=== PATIENT | female | born 1990 | race Hispanic/Latino ===

== ENCOUNTER 2018-04-09 08:01 | Inpatient (IN) | payer OTHER, SELFPAY ==
--- OUTSIDE RECORDS SUMMARY | 2018-04-09 08:03 | XMS REPORT ---
:1990 Author Organization eClinicalWorks Care Team Providers Name Role Phone Guillaume Anne Provider Role Unavailable Allergies No Known Allergies Problems Problem Type Condition Code Onset Dates Condition Status Problem Threatened O20.0 Active Problem Less than 8 weeks gestation of Z3A.01 Active Assessment Less than 8 weeks gestation of Z3A.01 Active Medications No Known Medications Results No Known Results Summary Purpose eClinicalWorks Submission
--- OUTSIDE RECORDS SUMMARY | 2018-04-09 08:03 | XMS REPORT ---
:1990 Author Organization [employer] Care Team Providers Name Role Phone Guillaume Anne Provider Role Unavailable Allergies, Adverse Reactions, Alerts Substance Reaction Event Type N.K.D.A. Info Not Available Non Drug Allergy Problems Problem Type Condition Code Onset Dates Condition Status Problem Threatened O20.0 Active Problem Less than 8 weeks gestation of Z3A.01 Active Assessment Threatened O20.0 Active Medications Medication Code System Code Instructions Start Date End Date Status Dosage Pre- NDC 0 Active not defined Results No Known Results Summary Purpose eClinicalWorks Submission
[2018-04-09] MEDS ORDERED: MORPHINE 4 MG/ML SYR ONE ×2 (08:31→08:46)
[2018-04-09] MEDS ORDERED: NA CHLORIDE 0.9% 1,000 ML ONE (08:31)
[2018-04-09] MEDS ORDERED: ONDANSETRON 4 MG/2 ML VIAL ONE (08:32)
[2018-04-09 08:35] LABS: Absolute Lymphocytes (CBC) 5.2 K/uL (0.7-4.9); Absolute Monocytes 0.9 K/uL (0.1-1.3); Absolute Neutrophil 10.8 K/uL (1.8-8.0); Basophils % 0.3 % (0-1.3); Eosinophils % 0.9 % (0-4.4); Lymphocytes % 30.4 % (15.3-44.8); MCV 88.4 fL (80-100); MPV 9.3 fL (7.6-11.3); Monocytes % 5.2 % (3.3-12.3); RBC Red Blood Cell Count 4.87 M/uL (3.86-4.86)
[2018-04-09] MEDS ORDERED: ACETAMINOPHEN 500 MG TAB PO PRN (09:13)
[2018-04-09] MEDS ORDERED: MORPHINE 4 MG/ML SYR IV PRN (09:13)
[2018-04-09] MEDS ORDERED: ONDANSETRON 4 MG/2 ML VIAL IV PRN (09:13)
--- NOTE | 2018-04-09 09:13 | ER ---
Nurse's Notes [facility] Name: Magui Ring Age: 27 yrs Sex: Female : 1990 Arrival Date: 04/09/2018 Time: 08:03 Bed 7 Private MD: None, None Diagnosis: Ectopic ;Abdominal tenderness;Hypokalemia Presentation: 04/09 08:17 Presenting complaint: Patient states: has had positive tests, had some iw vaginal bleeding March 26, US done on to r/o miscarriage, had not received results, this morning pt has had severe pelvic/abd pain 06/28, no bleeding, LMP=6-5-18. Transition of care: patient was not received from another setting of care. Onset of symptoms was April 09, 2018. Risk Assessment: Do you want to hurt yourself or someone else? Patient reports no desire to harm self or others. Initial Sepsis Screen: Does the patient meet any 2 criteria? No. Patient's initial sepsis screen is negative. Does the patient have a suspected source of infection? No. Patient's initial sepsis screen is negative. Care prior to arrival: None. 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 - Social history:: Smoking status: Patient/guardian denies using tobacco. - Ebola Screening: : Patient negative for fever greater than or equal to 101.5 degrees Fahrenheit, and additional compatible Ebola Virus Disease symptoms Patient denies exposure to infectious person Patient denies travel to an Ebola-affected area in the 21 days before illness onset No symptoms or risks identified at this time. - Family history:: not pertinent. Screenin:30 Abuse screen: Denies threats or abuse. Nutritional screening: No deficits noted. aa5 Tuberculosis screening: No symptoms or risk factors identified. Fall Risk None identified. Assessment: 08:18 General: Appears distressed, uncomfortable, Behavior is cooperative, restless. Pain: aa5 Complains of pain in pelvis Pain does not radiate. Pain currently is 10 out of 10 on a pain scale. Quality of pain is described as sharp, Pain began just [employer] Is continuous. Neuro: Level of Consciousness is awake, alert, obeys commands, Oriented to person, place, time, situation. Cardiovascular: Heart tones S1 S2 present Rhythm is regular. Respiratory: Airway is patent Respiratory effort is even, unlabored, Respiratory pattern is regular, symmetrical, Breath sounds are clear bilaterally. GI: Abdomen is round Bowel sounds present X 4 quads. Abdomen is tender to palpation in suprapubic area, right lower quadrant and left lower quadrant Reports nausea, Patient currently denies vomiting. : Denies vaginal bleeding. EENT: No signs and/or symptoms were reported regarding the EENT system. Derm: Skin is pink, warm \T\ dry. Musculoskeletal: Range of motion: intact in all extremities. 08:45 Reassessment: US at bedside. Pt screaming and crying during US, MD notified, Morphine aa5 ordered (see MAR). 09:24 Reassessment: Patient and/or family updated on plan of care and expected duration. Pain aa5 level reassessed. Patient is alert, oriented x 3, equal unlabored respirations, skin warm/dry/pink. Patient states feeling better. Patient states symptoms have improved. Pain: Pain currently is 4 out of 10 on a pain scale. 09:50 Reassessment: Dr. Soto at bedside speaking to pt about need for surgery . aa5 10:10 Reassessment: Consent form obtained for surgery (see pt's chart). aa5 10:20 Reassessment: Patient is alert, oriented x 3, equal unlabored respirations, skin aa5 warm/dry/pink. Vital Signs: 08:20 BP 119 / 50; Pulse 80; Resp 16 S; Temp 97.6; Pulse Ox 100% on R/A; Weight 83.01 kg; iw Height 5 ft. 2 in. (157.48 cm); Pain 10/10; 08:40 BP 116 / 94; Pulse 81; Resp 20 S; Pulse Ox 100% on R/A; Pain 10/10; aa5 09:23 BP 107 / 65; Pulse 68; Resp 16 S; Pulse Ox 100% on R/A; Pain 4/10; aa5 10:20 BP 100 / 57; Pulse 70; Resp 18 S; Pulse Ox 100% on R/A; Pain 3/10; aa5 08:20 Body Mass Index 33.47 (83.01 kg, 157.48 cm) ED Course: 08:03 Patient arrived in ED. mr 08:03 None, None is Private Physician. mr 08:10 Ramos Cornell MD is Attending Physician. roddy 08:14 Mahi Whitley, ALBERT is Primary Nurse. aa5 08:18 Patient has correct armband on for positive identification. Placed in gown. Bed in low aa5 position. Call light in reach. Side rails up X2. Adult w/ patient. 08:19 Triage completed. iw 08:20 Initial lab(s) drawn, by me, sent to lab. Inserted saline lock: 20 gauge in left aa5 antecubital area, using aseptic technique. Blood collected. 08:21 Arm band placed on. iw 08:28 Radiology exam delayed due to test not completed at this time. sg3 08:42 Ultrasound completed. Patient tolerated poorly. Notified ED Physician varghese with sg3 prelim , pt in a lot of pain unalbe to hold still for exam. 09:07 US Transvaginal Ob In Process Unspecified. EDMS 09:11 Lazaro Soto MD is Hospitalizing Provider. roddy 10:29 No provider procedures requiring assistance completed. Patient admitted, IV remains in aa5 place. Administered Medications: 08:25 Drug: NS 0.9% 1000 ml Route: IV; Rate: 1 bolus; Site: left antecubital; aa5 08:25 Drug: morphine 2 mg Route: IVP; Site: left antecubital; aa5 08:30 Follow up: Response: No adverse reaction aa5 08:25 Drug: morphine 2 mg Route: IVP; Site: left antecubital; aa5 08:30 Follow up: Response: No adverse reaction aa5 08:25 Drug: Zofran 4 mg Route: IVP; Site: left antecubital; aa5 08:30 Follow up: Response: No adverse reaction aa5 08:45 Drug: morphine 4 mg Route: IVP; Site: left antecubital; aa5 09:45 Drug: NS 0.9% with KCl 20 mEq/L 1000 ml Route: IV; Rate: 150 ml/hr; Site: left aa5 antecubital; 10:28 Follow up: IV Status: Infusion continued upon admission aa5 10:23 Drug: Ancef 1 grams {Note: given IVP per pharmacy protocol at this time .} Route: IVPB; aa5 Site: left antecubital; 10:28 Follow up: Response: No adverse reaction aa5 Outcome: 09:12 Decision to Hospitalize by Provider. [facility] 10:28 Admitted to OR accompanied by nurse, family with patient, via wheelchair, with chart. aa5 10:28 Condition: stable 10:28 Discharge instructions given to patient, significant other, Instructed on the need for admit, Demonstrated understanding of instructions. 10:29 Patient left the ED. aa5 Signatures: Dispatcher [employer] EDRamos Olson MD MD cha Rivera, Maria mr Williams, Irene, RN RN iw Calderon, Audri, RN RN aa5 Rachel Myers sg3
--- NOTE | 2018-04-09 09:13 | EDPHYS ---
Physician Documentation [facility] Name: Magui Ring Age: 27 yrs Sex: Female : 1990 Arrival Date: 04/09/2018 Time: 08:03 Bed 7 Private MD: None, None ED Physician Ramos Cornell HPI: 04/09 08:27 This 27 yrs old Female presents to ER via Wheelchair with complaints of roddy Abdominal Pain. 08:27 The patient presents with abdominal pain in the lower abdomen. Onset: The roddy symptoms/episode began/occurred just prior to arrival, this morning. The symptoms do not radiate. Associated signs and symptoms: none. The symptoms are described as crampy, sharp. Modifying factors: The symptoms are alleviated by nothing, remaining still, the symptoms are aggravated by coughing, breathing deeply, jumping, movement, pressure. Severity of pain: At its worst the pain was moderate severe in the emergency department the pain is unchanged. The patient has not experienced similar symptoms in the past. 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 - Social history:: Smoking status: Patient/guardian denies using tobacco. - Ebola Screening: : Patient negative for fever greater than or equal to 101.5 degrees Fahrenheit, and additional compatible Ebola Virus Disease symptoms Patient denies exposure to infectious person Patient denies travel to an Ebola-affected area in the 21 days before illness onset No symptoms or risks identified at this time. - Family history:: not pertinent. ROS: 08:27 Constitutional: Negative for fever, chills, and weight loss, Eyes: Negative for injury, roddy pain, redness, and discharge, ENT: Negative for injury, pain, and discharge, Neck: Negative for injury, pain, and swelling, Cardiovascular: Negative for chest pain, palpitations, and edema, Respiratory: Negative for shortness of breath, cough, wheezing, and pleuritic chest pain, Back: Negative for injury and pain, : Negative for injury, bleeding, discharge, and swelling, MS/Extremity: Negative for injury and deformity, Skin: Negative for injury, rash, and discoloration, Neuro: Negative for headache, weakness, numbness, tingling, and seizure, Psych: Negative for depression, anxiety, suicide ideation, homicidal ideation, and hallucinations, Allergy/Immunology: Negative for hives, rash, and allergies, Endocrine: Negative for neck swelling, polydipsia, polyuria, polyphagia, and marked weight changes, Hematologic/Lymphatic: Negative for swollen nodes, abnormal bleeding, and unusual bruising. 08:27 Abdomen/GI: Positive for abdominal pain, of the right lower quadrant and left lower quadrant. Exam: 08:27 Constitutional: This is a well developed, well nourished patient who is awake, alert, roddy and in no acute distress. Head/Face: Normocephalic, atraumatic. Eyes: Pupils equal round and reactive to light, extra-ocular motions intact. Lids and lashes normal. Conjunctiva and sclera are non-icteric and not injected. Cornea within normal limits. Periorbital areas with no swelling, redness, or edema. ENT: Nares patent. No nasal discharge, no septal abnormalities noted. Tympanic membranes are normal and external auditory canals are clear. Oropharynx with no redness, swelling, or masses, exudates, or evidence of obstruction, uvula midline. Mucous membranes moist. Neck: Trachea midline, no thyromegaly or masses palpated, and no cervical lymphadenopathy. Supple, full range of motion without nuchal rigidity, or vertebral point tenderness. No Meningismus. Chest/axilla: Normal chest wall appearance and motion. Nontender with no deformity. No lesions are appreciated. Cardiovascular: Regular rate and rhythm with a normal S1 and S2. No gallops, murmurs, or rubs. Normal PMI, no JVD. No pulse deficits. Respiratory: Lungs have equal breath sounds bilaterally, clear to auscultation and percussion. No rales, rhonchi or wheezes noted. No increased work of breathing, no retractions or nasal flaring. Back: No spinal tenderness. No costovertebral tenderness. Full range of motion. Female : Normal external genitalia. Skin: Warm, dry with normal turgor. Normal color with no rashes, no lesions, and no evidence of cellulitis. MS/ Extremity: Pulses equal, no cyanosis. Neurovascular intact. Full, normal range of motion. Neuro: Awake and alert, GCS 15, oriented to person, place, time, and situation. Cranial nerves II-XII grossly intact. Motor strength 5/5 in all extremities. Sensory grossly intact. Cerebellar exam normal. Normal gait. Psych: Awake, alert, with orientation to person, place and time. Behavior, mood, and affect are within normal limits. 08:27 Abdomen/GI: Inspection: abdomen appears normal, Bowel sounds: normal, Palpation: moderate abdominal tenderness, in the suprapubic area, right lower quadrant and left lower quadrant. Vital Signs: 08:20 BP 119 / 50; Pulse 80; Resp 16 S; Temp 97.6; Pulse Ox 100% on R/A; Weight 83.01 kg; iw Height 5 ft. 2 in. (157.48 cm); Pain 10/10; 08:40 BP 116 / 94; Pulse 81; Resp 20 S; Pulse Ox 100% on R/A; Pain 10/10; aa5 09:23 BP 107 / 65; Pulse 68; Resp 16 S; Pulse Ox 100% on R/A; Pain 4/10; aa5 10:20 BP 100 / 57; Pulse 70; Resp 18 S; Pulse Ox 100% on R/A; Pain 3/10; aa5 08:20 Body Mass Index 33.47 (83.01 kg, 157.48 cm) iw MDM: 08:10 Patient medically screened. [facility] 08:28 Data reviewed: vital signs, nurses notes, lab test result(s), radiologic studies, roddy ultrasound. 04/09 08:13 Order name: Quantitative Hcg; Complete Time: 09:38 [facility] 04/09 08:13 Order name: Abo/rh Typing; Complete Time: 08:37 [facility] 04/09 08:13 Order name: Basic Metabolic Panel; Complete Time: 09:38 [facility] 04/09 08:13 Order name: CBC with Diff; Complete Time: 08:37 [facility] 04/09 09:14 Order name: Basic Metabolic Panel EDMS 04/09 09:14 Order name: Basic Metabolic Panel EDMS 04/09 09:15 Order name: CBC with Automated Diff EDMS 04/09 09:15 Order name: CBC with Automated Diff EDMS 04/09 09:15 Order name: Lipase EDMS 04/09 09:15 Order name: Lipase EDMS 04/09 09:15 Order name: Liver (Hepatic) Function EDMS 04/09 09:15 Order name: Liver (Hepatic) Function EDMS 04/09 09:39 Order name: Urine Dipstick--Ancillary (enter results) bd 04/09 09:39 Order name: Urine --Ancillary (enter results) bd 04/09 08:13 Order name: Urine Test (obtain specimen); Complete Time: 09:26 [facility] 04/09 08:13 Order name: IV Saline Lock; Complete Time: 08:45 [facility] 04/09 08:13 Order name: Labs collected and sent; Complete Time: 08:45 [facility] 04/09 08:13 Order name: NPO; Complete Time: 08:45 [facility] 04/09 08:13 Order name: Urine Dipstick-Ancillary (obtain specimen); Complete Time: 09:26 roddy 04/09 08:13 Order name: US Transvaginal Ob; Complete Time: 09:46 [facility] 04/09 09:15 Order name: NPO EDNM Administered Medications: 08:25 Drug: NS 0.9% 1000 ml Route: IV; Rate: 1 bolus; Site: left antecubital; aa5 08:25 Drug: morphine 2 mg Route: IVP; Site: left antecubital; aa5 08:30 Follow up: Response: No adverse reaction aa5 08:25 Drug: morphine 2 mg Route: IVP; Site: left antecubital; aa5 08:30 Follow up: Response: No adverse reaction aa5 08:25 Drug: Zofran 4 mg Route: IVP; Site: left antecubital; aa5 08:30 Follow up: Response: No adverse reaction aa5 08:45 Drug: morphine 4 mg Route: IVP; Site: left antecubital; aa5 09:45 Drug: NS 0.9% with KCl 20 mEq/L 1000 ml Route: IV; Rate: 150 ml/hr; Site: left aa5 antecubital; 10:28 Follow up: IV Status: Infusion continued upon admission aa5 10:23 Drug: Ancef 1 grams {Note: given IVP per pharmacy protocol at this time .} Route: IVPB; aa5 Site: left antecubital; 10:28 Follow up: Response: No adverse reaction aa5 Disposition: 04/09/18 09:12 Hospitalization ordered by Lazaro Soto for Inpatient Admission. Preliminary diagnosis are Ectopic , Abdominal tenderness, Hypokalemia. - Bed requested for Telemetry/MedSurg (Inpatient). - Status is Inpatient Admission. aa5 - Condition is Guarded. - Problem is new. - Symptoms are unchanged. UTI on Admission? No Signatures: Dispatcher [employer] EDMS Ramos Cornell MD MD cha Williams, Irene, RN RN iw Calderon, Audri, RN RN aa5 Corrections: (The following items were deleted from the chart) 09:39 09:12 Hospitalization Ordered by Lazaro Soto MD for Inpatient Admission. Preliminary roddy diagnosis is Ectopic . Bed requested for Telemetry/MedSurg (Inpatient). Status is Inpatient Admission. Condition is Guarded. Problem is new. Symptoms are unchanged. UTI on Admission? No. roddy 10:29 09:39 04/09/2018 09:12 Hospitalization Ordered by Lazaro Soto MD for Inpatient aa5 Admission. Preliminary diagnosis is Ectopic ; Abdominal tenderness; Hypokalemia. Bed requested for Telemetry/MedSurg (Inpatient). Status is Inpatient Admission. Condition is Guarded. Problem is new. Symptoms are unchanged. UTI on Admission? No. roddy
[2018-04-09 09:24] LABS: Potassium 3.4 mmol/L (3.5-5.1)
--- NOTE | 2018-04-09 09:44 | RAD REPORT ---
EXAM DESCRIPTION: US - Transvaginal OB - 04/09/2018 9:07 am CLINICAL HISTORY: , abdominal pain cramping, beta HCG unknown COMPARISON: April 06 TECHNIQUE: Endovaginal sonography performed. FINDINGS: Uterus is 7.7 x 3.8 x 4.8 cm. No myometrial mass. No intrauterine gestational sac, sac remnant or focal endometrial finding identifiable. No intrauteri ne hematoma or mass. Right ovary and right adnexa show no significant findings. The anechoic right ovarian cyst seen April 06 is no longer identifiable. Doppler evaluation shows normal right ovarian blood flow pattern. Left ovary was identifiable. Blood flow is seen within the left ovarian stroma. No focal left adnexal mass seen that is typical for an ectopic . There is any elongated heterogeneous structure i n the left adnexa. This could be a somewhat unusual presentation bowel loop. Hydrosalpinx/pyosalpinx lesser consideration. Beta HCG value was not known. In the setting of positive test, pelvic pain and no IUP, ecto pic cannot be excluded. IMPRESSION: No intrauterine gestation, gestational sac remnant or other focal uterine process. No right ovarian or right adnexal abnormality. No free fluid or blood in the cul-de-sac. Any elongated tubular structure in the left adnexa could be an unusual presentation of a bowel loop o r less likely hydrosalpinx/pyosalpinx. Configuration is not typical ectopic appearance. In the setting of pelvic pain, positive test and absence of an IUP, ectopic canno t be excluded. Continued follow-up is needed.
[2018-04-09] MEDS ORDERED: NS KCL 20MEQ 1,000 ML IV ONE (09:50)
[2018-04-09] MEDS ORDERED: NA CHLORIDE 0.9% 1,000 ML IV SCH (10:00)
[2018-04-09 10:17] LABS: Urine Blood NEGATIVE (NEG); Urine Glucose NEGATIVE (NEG); Urine Protein NEGATIVE (NEG); Urine Specific Gravity 1.015 (1.005-1.030)
[2018-04-09] MEDS ORDERED: CEFAZOLIN/SWI 1gm 1 GM/10 ML SYR ONE (10:22)
[2018-04-09] MEDS ORDERED: BUPIVACA 0.25%/EPI 0.0005%/PF 30 ML VIAL ONE (10:33)
[2018-04-09] MEDS ORDERED: Ringers Lactate 0 ML IV ONE (10:36)
[2018-04-09] MEDS ORDERED: SUCCINYLCHOLINE 20 MG/ML (10 ML) IV ONE (10:44)
[2018-04-09] MEDS ORDERED: MIDAZOLAM HCL 2 MG/2 ML INJ ONE (11:58)
[2018-04-09] MEDS ORDERED: PROPOFOL 200 MG/20 ML VIAL IV ONE (11:58)
[2018-04-09] MEDS ORDERED: FENTANYL CITR 100 MCG/2 ML ONE (11:59)
[2018-04-09] MEDS ORDERED: Ringers Lactate 1,000 ML IV ONE (12:47)
[2018-04-09] MEDS ORDERED: ROCURONIUM 50 MG/5 ML VIAL IV ONE (13:15)
[2018-04-09] MEDS ORDERED: GLYCOPYRROLATE 0.2 MG/ML SYR ONE ×2 (13:15)
--- NOTE | 2018-04-09 13:20 | P.OP ---
Water Safety Instructor: Sandrine Soto Preoperative diagnosis: Right Ruptured Tubal Postoperative diagnosis: Right Ruptured Tubal Primary procedure: Right Partial Salpingectomy Secondary procedure: Laparoscopic Abdominal / Pelvic Washout Anesthesia: GETA + Local Estimated blood loss: 1000 cc Specimen: Partial Right Fallopian tube - rupture Findings: Ruptured Bleeding Right Tubal , 1L hemoperitoneum Complications: None Transferred to: ICU Condition: Fair
[2018-04-09] MEDS: FENTANYL CITR 100 MCG/2 ML ONE ×2 (13:33→13:39)
--- NOTE | 2018-04-09 13:41 | PREOPHP ---
Date of Admission: 04/09/2018 History Of Present Illness: This is a 27-year-old female, 3, para 1, AB1 with left tubal ect opic . The patient has been seen by Dr. Anne and here in the emergency room quantitative l evels have been increasing, but no signs of intrauterine gestational sac and now there is a 3 cm tubu lar structure in the left adnexa. No hemoperitoneum at this time. The patient is in extreme pain. She has had 2 doses of morphine, but is still in significant pain. Options have been discussed with the patient including methotrexate. We can give her 80 mg and admitt her to the hospital here [facility] and then Dr. Anne will see her tomorrow morning. However, the patient states, the pain level is too high and she does not wish to do that. It has been explained to the patient, that we will attem pt to save the tube with the linear salpingostomy, but if that is not possible, the salpingectomy pos sibly will be necessary. She is agreeable to this procedure. Family History: Noncontributory. Allergies: NO ALLERGIES. Past Surgical History: Previous and D and C for miscarriage. Physical Examination: Vital Signs: Stable. HEENT: Clear. Pupils equal, round, and reactive to light and accommodation. Conjunctivae well perf used. No oral, lingual, or buccal lesions. Chest and Lungs: Clear. Heart: Without murmurs, thrills, heaves, or rubs. Breasts: Not examined. Abdomen: Tender in the lower quadrants. Not really on 1 side more than the other. Extremities: Clear. Pelvic: Not done. Plan: We will proceed with diagnostic laparoscopy, attempted linear salpingostomy, and possible salp ingectomy if necessary. Dr. Anderson will be with me during the surgery. KARLIE/UBALDO Voice ID: [id number]
[2018-04-09 13:43] LABS: Hematocrit 33.5 % (36.0-45.0)
[2018-04-09] MEDS: MEPERIDINE HCL 25 MG/0.5 ML ONE ×2 (13:52→14:10)
--- NOTE | 2018-04-09 14:03 | CON ---
Date of Consultation: 04/09/2018 Brief History Of Present Illness: The patient is a 27-year-old female, who presents with ab dominal pain predominantly on the right and left lower pelvic areas. She is normally followed by Dr. Anne, who is her primary material loader. She states that the pain is essentially getting worse on th is area and has not improved other than with the administration of pain medication. It is crampy and sharp at times. There is no alleviating factors, but it is exacerbated by coughing, deep breathing, movement. Past Medical History: Negative. Obstetrical And Gynecologic History: She is G3, P1, A1. LMP is 02/21/2018. Allergies: NO KNOWN DRUG ALLERGIES. Medications: Include vitamin. Past Surgical History: As described, she has had a , D and C. Social History: She denies smoking, alcohol, or recreational drug use. Physical Examination: General: At the time of my examination, she is awake, alert, oriented. Psychiatric: She is appropriate and conversive. HEENT: She is normocephalic. Her sclerae are anicteric. Mucous membranes are moist. Oropharynx cl ear. Chest: Normal expansion. Abdomen: Soft with positive left lower quadrant tenderness to palpation. Extremities: No clubbing, cyanosis, or edema. She had a transvaginal ultrasound, which was officially read as no intrauterine gestational sac remna nt or other focal uterine process. No right ovarian or right adnexal abnormality. No free fluid or blood in the cul-de-sac. An elongated tubular structure in the left adnexum could be an unusual pres entation of a bowel loop or less likely hydrosalpinx. Configuration is not typical. Ectopic pregnan cy appearance in the setting of pelvic pain, positive test and absence of IUP. Ectopic pre gnancy cannot be excluded. Followup is needed. She had a laboratory examination as well, which show ed a white blood cell count 17.1, hemoglobin 14.6, hematocrit of 43.0, and platelet count 333. Her c hemistry showed a sodium 137, potassium 3.4, chloride 106, carbon dioxide 23, BUN 12, creatinine 0.8, glucose is 103, and calcium 9.4. Her beta HCG is 5692. Her UA was positive, test as well . Assessment And Plan: This is a 27-year-old female with a likely ectopic . 1.The patient will be taken to the operating room emergently by Dr. Soto for laparoscopic repair an d a lateral salpingotomy and evacuation of ectopic and indicated procedures. I will assist Dr. Soto per his request with the case and continue management per Dr. Soto. Dr. Anne will likel y be taking over tomorrow as well. I will follow along with you throughout the course. Thank you for this interesting consult. GEORGINA Voice ID: [id number] Report ID: [id number]
[2018-04-09] MEDS: Ringers Lactate 1,000 ML IV SCH ×2 (14:09→23:14)
[2018-04-09 14:52] VITALS: O2SAT 99; BMI 33.5
[2018-04-09] MEDS: Magnesium Sulfate 1gm IVPB 1 GM/50 ML BAG IV SCH ×2 (17:20→18:03)
[2018-04-09] MEDS: HYDROCODONE/APAP 5/325 MG TAB PO PRN (18:07)
--- NOTE | 2018-04-09 19:39 | OP ---
Surgeon: Lazaro Soto MD A 27-year-old, female, 3, para 1, AB1, previous , The patient followed by [facility], noted to have increasing quantitative HCG levels, but no intrauterine gestation, today came into emergency room with severe lower abdominal pain. Ultrasound demonstrated a 3 cm, what was thou ght to be left adnexal tubular structure. No free blood seen at the time or at least none mentioned. H and H with hemoglobin initially of 13-14. Normal pulse. The patient though was very tender on l ower abdominal palpation, both sides equally. Options were discussed with the patient including meth otrexate and overnight observation. The patient states that even after 2 doses of morphine, her pain level was increasing and she could not tolerate overnight. Full preoperative counseling concerning procedure and possible complications, including infection, blood loss, anesthetic complications, inju ry to bladder, bowel, ureter, postoperative complications, clots in legs, and pneumonia. The patient knows and is fully aware that tubal removal might have to be performed instead of a linear salpingos madhu, which I discussed with the patient's . She knew also that Dr. Anderson was going to be t he main surgeon and I would be for diagnostic help. A preop dose of 1 g of Ancef was ordered and the patient was then ready for surgery. Anesthesia: Dr. Stahl for anesthesia. Description Of Procedure: After adequate general anesthesia, the patient was prepped and draped and time-out was performed. Trocars and visualizing instruments were placed. There was noted to be sign ificant hemoperitoneum. Bleeding appeared to be from a right ruptured tubal lesion, about midway in the tube. No contents could be seen. There was significant clot and blood in the pelvis and upper a bdomen. At this point, Dr. Anderson took over and attempted to stop the bleeding with cautery. Then at this point, a partial salpingectomy was performed and he will dictate the operative note. The est imated blood loss at time of surgery at least 1 L. The patient remained stable. We will check of co urse H and H postoperatively and the patient will be moved to the intensive care for just observation , although she seem to be quite stable at this time. Diagnosis: At this point IS ruptured tubal ectopic, right side, significant hemoperitoneum, partial salpingectomy performed. ELLIS Voice ID: [id number] Report ID: [id number]
--- NOTE | 2018-04-09 20:03 | OP ---
Date of Procedure: 04/09/2018 Surgeon: Laz Anderson MD, Stone Banker: Lazaro Soto M.D. Please see Dr. Soto's note for his aspect of the procedure. Preoperative Diagnosis: Right ruptured tubal . Postoperative Diagnosis: Right ruptured tubal . Procedure Performed: 1.Right partial salpingectomy including tubal ruptured . 2.Secondary procedure laparoscopic abdominal/pelvic washout. Anesthesia: General endotracheal plus local with 0.25% Marcaine. Estimated Blood Loss: 1 L of blood was evacuated from the abdomen. Specimen: Right partial fallopian tube in the area of the ruptured ectopic . Findings: Ruptured bleeding right tubal with active bleeding and approximately 1 L of hemo peritoneum appreciated over the omentum and in the pelvis as well as in the right and left pericolic gutters and extending to the suprahepatic space and perisplenic space. Disposition: Transferred to ICU in fair condition. Complications: No complications immediately encountered. Procedure In Detail: After informed consent was obtained, the patient was brought to the operating r oom, prepped and draped in the usual sterile fashion after adequate anesthesia was achieved. Dr. Selvin dugan and I used a 5 mm trocar into the abdomen in the supraumbilical position without evidence of compl ication. Insufflation was obtained to 15 mmHg at this time. There was no injury to vital structure upon entry into the abdomen, however, upon immediate inspection, large amount of blood was appreciate d in the pelvis. This appeared to be a lot of significant clot with some bright red component to the right colic gutter. Additionally on inspection, there was blood appreciated in the right and left p ericolic gutters and extending in the area of the suprahepatic space and perisplenic space upon inspe ction. At this point, the patient was hemodynamically stable throughout the entire procedure and thi s was verified throughout the procedure. Preoperative hemoglobin was also in a good range, in the 14 range; therefore, we proceeded with the laparoscopic aspect of this operation. Additional trocar si te was chosen in the right lower quadrant. This was similarly anesthetized and sharply incised. A 5 -mm trocar was introduced into the abdomen without evidence of complication. The umbilical trocar wa s then up-sized to 12 mm under direct visualization without evidence of complication. Additional tro car site was chosen in a left lower quadrant. This similarly was anesthetized, sharply incised, and a 5-mm trocar was introduced into the abdomen without evidence of complication. The patient was then positioned in head down position. Suction custom seamstress was brought to the abdomen and after copiously irrigating and suctioning out approximately 1 L of clot, the left fallopian tube was inspected and fo und to be in a normal position. Dr. Soto confirmed this that the left fallopian tube appeared to be intact without any evidence of ectopic , inflammation, scarring, bleeding, or any other pat hologic abnormalities. The ovary appeared good as well all the way extending to the cornua and confl uence of the uterus. The uterus was inspected and found to have no obvious anatomic abnormalities. There was no evidence of bleeding or injury at this time as well. Attention was then turned to the r ight lower quadrant. Upon tracing along the fallopian tube to the ovary what appeared to be a ruptur ed ectopic was appreciated on mid to distal aspect of the fallopian tube. There was active bright red bleeding at this time. Monopolar cautery was attempted to control this. However, this w as unsuccessful. The bleeding continued and as such the LigaSure device was used to perform a partia l salpingectomy by simply ligating both the proximal distal aspects around this area of bleeding. Go od hemostasis was achieved at this time. This portion of the removed fallopian tube was placed in an EndoCatch bag and removed through the umbilical trocar. Re-insufflation was obtained at this time. The abdomen was copiously irrigated with approximately 9 L of saline to completely evacuate all the clot in the suprahepatic, perisplenic right and left pericolic gutters and the pelvic spaces space. Space of Retzius was also irrigated copiously and Marv' pouch was also copiously irrigated. The a bdomen was completely cleared of clot at the end of the procedure and there was no additional bleedin g upon inspection of all quadrants at this time. At this time, the patient was positioned in neutral position. Additional suctioning was performed until the abdomen completely dried as well as much as possible with the suction device. The umbilical trocar was then removed and the umbilical trocar si te was closed using a Alexis-Nargis suture passer with 0 Vicryl interrupted fashion with good appro ximation of tissues. The remaining trocar was then desufflated under direct visualization without ev idence of complication and all skin incisions were copiously irrigated and closed with 4-0 Monocryl i n a running fashion with Dermabond placed over top. The patient tolerated the procedure well without evidence of complication and transferred to the ICU in fair condition for monitoring as she had sign ificant blood loss. All counts were correct at the case. SHANTAL/UBALDO Voice ID: [id number] Report ID: [id number]
[2018-04-10 05:19] LABS: Absolute Lymphocytes (CBC) 2.8 K/uL (0.7-4.9); Absolute Monocytes 1.2 K/uL (0.1-1.3); Absolute Neutrophil 12.7 K/uL (1.8-8.0); Basophils % 0.4 % (0-1.3); Eosinophils % 0.3 % (0-4.4); Hematocrit 27.9 % (36.0-45.0); Lymphocytes % 16.7 % (15.3-44.8); MCH 30.2 pg (27.0-35.0); MCV 89.1 fL (80-100); MPV 9.3 fL (7.6-11.3); RBC Red Blood Cell Count 3.14 M/uL (3.86-4.86)
[2018-04-10] MEDS: HYDROCODONE/APAP 5/325 MG TAB PO PRN ×2 (05:36→10:19)
[2018-04-10 05:43] LABS: ALT/SGPT 35 U/L (12-78); AST/SGOT 9 U/L (15-37); Albumin 2.9 g/dL (3.4-5.0); Alkaline Phosphatase 41 U/L (45-117); BUN Blood Urea Nitrogen 5 mg/dL (7-18); Bicarbonate 25 mmol/L (21-32); Bilirubin Direct 0.1 mg/dL (0-0.2); Bilirubin Total 0.6 mg/dL (0.2-1.0); Glucose Level 95 mg/dL (74-106); HDL Cholesterol 34 mg/dL (40-60); LDL Cholesterol, Calculated 95 (<130); Lipase 210 U/L (73-393); Protein, Total 5.7 g/dL (6.4-8.2); Sodium Level 141 mmol/L (136-145)
[2018-04-10] MEDS: Ringers Lactate 1,000 ML IV SCH ×2 (06:00→08:05)
[2018-04-10 10:13] VITALS: BP 111/62
[2018-04-10 10:54] VITALS: TEMP 97.5
--- NOTE | 2018-04-10 10:55 | PN ---
Since surgery, the patient has done quite well. She is ambulating. Pain level is 3 or less. Her ab domen is quite soft today compared to yesterday when she had rebound. She says she feels much better . On admission, her hematocrit was around 40-43. It has subsequently dropped to about the 28 range, which would be expected considering amount of blood we saw in her abdomen. I think that Dr. Anderson will probably get another level until it shows that it has stabilized. At that point, I think all t he patient needs is to take iron pills twice a day for couple of months. She does not want to get pr egnant any time soon so she will be started on control sometime in the near future. She knows because she has had a tubal , the chance for tubal in the future is higher. She k nows also that portion of her right tube was removed and that tube is probably nonfunctional, althoug h it could be reanastomosed if needed in the future, but the tube on the left side looked completely normal, although she knows that we cannot see inside the tube. Doing well. Dr. Anderson will decide when she gets to go home. KARLIE/UBALDO Voice ID: [id number] Report ID: [id number]
== END 2018-04-10 10:45 | disposition home or self-care (01) | DRG 777 ==
LOC: ER 08:01 → UNDOADMIN 09:12 → ERHOLD 09:12 → OR 10:25 → 3RD-ICU 13:50 → 2ND 14:17 → OR 17:15 → 3RD-ICU 17:17
PROVIDERS: ADMIT Specialist; ATTEND Specialist
PROC: 10T24ZZ Resection of Products of Conception, Ectopic, Percutaneous Endoscopic Approach (ICD-10-PCS; 2018-04-09)
PROC: 3E1M38Z Irrigation of Peritoneal Cavity using Irrigating Substance, Percutaneous Approach (ICD-10-PCS; 2018-04-09)
PROC: 0UB54ZZ Excision of Right Fallopian Tube, Percutaneous Endoscopic Approach (ICD-10-PCS; principal; 2018-04-09 10:30)
DX: O00.102 Left tubal pregnancy without intrauterine pregnancy (principal); K66.1 Hemoperitoneum; E87.6 Hypokalemia
CPT/HCPCS: 36415; 76817; 80048; 80061; 80076; 81003; 81025; 83690; 83735; 84702; 85014; 85018; 85025; 86900; 86901; 88305; 96361; 96374; 96375; 99285; J0330; J0690; J2175; J2250; J2405; J3010; J3475; J7030

== ENCOUNTER 2021-02-23 14:26 | Emergency (ER) | payer OTHER, SELFPAY ==
--- OUTSIDE RECORDS SUMMARY | 2021-02-23 14:29 | XMS REPORT | Continuity of Care Document ---
:1990 Author Organization [facility] t Address [address] [place] [address] [address]. [address] [place] [address] Care Team Providers Name Role Phone Visit, Nurse Attending Clinician Unavailable Problems Condition Condition Condition Status Onset Resolution Last Treating Co mments Source Name Details Category Date Date Treatment Clinician Date Threatened Threatened Problem Active [facility] Less than Less than Problem Active [facility] 8 weeks 8 weeks [facility] - gestation gestation [facility] l [facility]p ati ent Clinics Right Right Problem Active [facility] tubal tubal [facility] without without l intrauteri intrauteri Ou tpati ne ne ent Clin ics Encounter Encounter Problem Active [facility] for for [facility] - initial initial Memoria prescripti prescripti l on of on of Outpati contracept contracept en t bianca pills bianca pills Clin ics Cervical Cervical Problem Active [facility] cancer [facility] screening screening [facility] Allergies, Adverse Reactions, Alerts This patient has no known allergies or adverse reactions. Medications Ordered Filled Start Stop Current Ordering Indication Dosage Frequency Signature Comments Components Source Medication Medication Date Date Medication? Clinician (SIG) Name Name Norethin Norethin 2018-0 Yes Laz [address] [facility] 04-19 [facility] 00:00: [facility] l [facility] ent Clinics Pre- Pre-Lorenzo Yes Laz not [facility] Procedures This patient has no known procedures. Encounters Start End Encounter Admission Attending Care Care Encounter Source Date/Time Date/Time Type Type Clinicians Facility Department ID 2020-07-08 2020-07-08 Nurse Visit, [facility] [id number] 13:29:21 16:43:59 Visit [facility] EVP BUSINESS DEVELOPMENT [id number] Nurse REGIONAL [id number] MATERNAL [id number] & CHILD [address] [place] [address] 2018-05-03 2018-05-03 [facility] [id number] [facility] [address] 13:45:00 13:45:00 t Specialty/U Corrine kes - Specialty rology Memori a /Urology Clinic l [facility] 2018-04-19 2018-04-19 [facility] [id number] [facility] [address] 11:30:00 11:30:00 t [facility] 2018-04-14 2018-04-14 [facility] [id number] 14:54:00 14:54:00 t [facility] 2018-04-14 2018-04-14 [facility] [id number] 11:15:00 11:15:00 t [facility] 2018-04-13 2018-04-13 [facility] [id number] 13:31:00 13:31:00 t Specialty/U Corrine kes - Specialty rology [facility] /Urology Clinic l [facility] 2018-04-08 2018-04-08 [facility] [id number] 15:01:00 15:01:00 t [facility] 2018-04-05 2018-04-05 [facility] [id number] [address] 14:51:00 14:51:00 t [facility] 2018-04-05 2018-04-05 [facility] [id number] 09:15:00 09:15:00 t [facility] Care Clinic [facility] 2018-04-04 2018-04-04 Outpatient Maykelbrittany Chanda [id number] [facility] 11:23:00 11:23:00 t [facility] - Care [facility] Results This patient has no known results.
--- NOTE | 2021-02-23 15:56 | RAD REPORT ---
EXAM DESCRIPTION: US - Transvaginal OB - 02/23/2021 3:33 pm CLINICAL HISTORY: rule out ectopic Pelvic pain COMPARISON: Transvaginal OB dated 04/09/2018 FINDINGS: There are 2 gestational sacs with decidual reaction present in the uterus. One of the sacs is very high in position on the right and its position raises the possibility of a co rneal ectopic implantation. The other gestational sac appears within the mid endometrium with a large adjacent subchorionic bleed measuring 21 x 13 x 8 mm. No embryo is detected within either sac. Left ovary was obscured by bowel gas. Right ovary is normal with normal Doppler blood flow. Mild fluid is seen in the cervical canal. IMPRESSION: Two gestational sacs are seen within the uterus. One of the sacs appears very high in po sition on the right and raise suspicion for a cornual ectopic implantation. The other sac appears in the mid aspect of the endometrium with a large adjacent subchorionic bleed. There is no evidence of yolk sac or embryo yet seen in either sac at this time. Recommend close interval follow-up clinical and serial HCG levels. Close interval follow-up ultrasoun d would also be recommended in 5-7 days.
[2021-02-23 16:37] LABS: Absolute Lymphocytes (CBC) 2.8 K/uL (0.7-4.9); Basophils % 0.7 % (0-1.3); Hematocrit 41.6 % (36.0-45.0); Lymphocytes % 14.4 % (15.3-44.8); MPV 9.7 fL (7.6-11.3); RBC Red Blood Cell Count 4.75 M/uL (3.86-4.86)
[2021-02-23 17:09] LABS: BUN Blood Urea Nitrogen 9 mg/dL (7-18); Bicarbonate 22 mmol/L (21-32); Glucose Level 90 mg/dL (74-106); HCG, Quantitative 30008 mIU/mL (1-3); Potassium 3.5 mmol/L (3.5-5.1); Sodium Level 138 mmol/L (136-145)
--- NOTE | 2021-02-23 17:45 | ER ---
Nurse's Notes [facility] Name: Magui Ring Age: 30 yrs Sex: Female : 1990 Arrival Date: 02/23/2021 Time: 14:28 Bed 12 Private MD: Lazaro Soto B Diagnosis: Ectopic , unspecified Presentation: 02/23 14:31 Chief complaint: Patient states: "I tested positive with a test 10 days ago jd3 and today I am having some bleeding so Dr. Soto told me to come get blood work done and an ultrasound.". Coronavirus screen: At this time, the client does not indicate any symptoms associated with coronavirus-19. Ebola Screen: Patient negative for fever greater than or equal to 101.5 degrees Fahrenheit, and additional compatible Ebola Virus Disease symptoms. Initial Sepsis Screen: Does the patient meet any 2 criteria? No. Patient's initial sepsis screen is negative. Does the patient have a suspected source of infection? No. Patient's initial sepsis screen is negative. Risk Assessment: Do you want to hurt yourself or someone else? Patient reports no desire to harm self or others. Onset of symptoms was February 14, 2021. 14:31 Method Of Arrival: Ambulatory j 14:31 Acuity: HEATHER 3 jd3 MOVER HELPER: 14:34 LMP N/A - Irregular menses jd3 Historical: - Allergies: 14:34 NKA; jd3 - Home Meds: 14:34 Vitamin Oral [Active]; jd3 - PMHx: 14:34 None; jd3 - PSHx: 14:34 ; D \\T\\ C; jd3 - Immunization history:: Adult Immunizations up to date, Client reports receiving the 2nd dose of the Covid vaccine. - Social history:: Smoking status: Patient denies any tobacco usage or history of. Screenin:20 Abuse screen: Denies threats or abuse. Denies injuries from another. Nutritional sv screening: No deficits noted. Tuberculosis screening: No symptoms or risk factors identified. Fall Risk None identified. Assessment: 16:20 General: Appears in no apparent distress. comfortable, well groomed, well developed, sv Behavior is cooperative, appropriate for age, anxious, crying. Pain: Complains of pain in abdomen. Neuro: Level of Consciousness is awake, alert, obeys commands, Oriented to person, place, time, situation, Gait is steady, Speech is normal. Respiratory: Respiratory effort is even, unlabored, Respiratory pattern is regular, symmetrical. : Reports vaginal bleeding that is bright red, with clots, moderate flow. Derm: Skin is pink, warm \\T\\ dry. 18:20 Reassessment: Patient appears in no apparent distress at this time. No changes from sv previously documented assessment. Patient and/or family updated on plan of care and expected duration. Pain level reassessed. Patient is alert, oriented x 3, equal unlabored respirations, skin warm/dry/pink. 18:25 Reassessment: Pt up for discharge, but Estefany DAVID and Dr Flores want to keep the pt here sv a bit longer to monitor. 18:58 Reassessment: Patient appears in no apparent distress at this time. No changes from sv previously documented assessment. Patient and/or family updated on plan of care and expected duration. Pain level reassessed. Patient is alert, oriented x 3, equal unlabored respirations, skin warm/dry/pink. Neuro: Denies dizziness. Vital Signs: 14:34 BP 143 / 81; Pulse 83; Resp 17 S; Temp 97.6(TE); Pulse Ox 99% on R/A; Weight 87.54 kg jd3 (R); Height 5 ft. 2 in. (157.48 cm) (R); Pain 3/10; 18:20 BP 103 / 78 LA Sitting (auto/); Pulse 77; sv 18:23 BP 120 / 68 RA Standing (auto/); Pulse 67; sv 18:57 BP 126 / 67 LA Sitting (auto/); Pulse 67; sv 14:34 Body Mass Index 35.30 (87.54 kg, 157.48 cm) jd3 18:[address] CHANGE ROOF BOLTER sv 18:23 Informed Estefany DAVID sv ED Course: 14:28 Patient arrived in ED. am2 14:28 Lazaro Soto MD is Private Physician. am2 14:33 Triage completed. jd3 14:35 Arm band placed on. jd3 14:39 [facility] kb 14:39 Ras Flores MD is Attending Physician. kb 15:33 US Transvaginal Ob In Process Unspecified. EDMS 16:20 Patient has correct armband on for positive identification. Door closed. sv 16:20 Inserted saline lock: 20 gauge in right antecubital area, using aseptic technique. sv Blood collected. Flushed right antecubital with 5 ml normal saline. 16:41 Quantitative Hcg Sent. sv 16:41 Basic Metabolic Panel Sent. sv 16:42 Consent for methotrexate complete. sv 17:44 Lazaro Soto MD is Referral Physician. kb 18:00 Emelyn Salmon, RN is Primary Nurse. sv 18:58 No provider procedures requiring assistance completed. IV discontinued, intact, sv bleeding controlled, No redness/swelling at site. Pressure dressing applied. 18:59 Primary Nurse role handed off by Emelyn Salmon RN sv Administered Medications: 17:53 Drug: Methotrexate 75 mg Route: IM; Site: right gluteus; sv 18:39 Follow up: Response: No adverse reaction sv Outcome: 17:45 Discharge ordered by MD. kb 18:58 Discharged to home ambulatory. sv 18:58 Condition: stable 18:58 Discharge instructions given to patient, Instructed on discharge instructions, follow up and referral plans. safety practices, Demonstrated understanding of instructions, follow-up care. 18:58 Patient left the ED. sv Signatures: Dispatcher [employer] [facility] Estefany Wilde, PUT IN BEAT ADJUSTER-C PUT IN BEAT ADJUSTER-Ckb Emelyn Salmon, RN RN Anayeli Vargas Jonathon, RN RN jd3
--- NOTE | 2021-02-23 17:45 | EDPHYS ---
Physician Documentation [facility] Name: Magui Ring Age: 30 yrs Sex: Female : 1990 Arrival Date: 02/23/2021 Time: 14:28 Bed 12 Private MD: Lazaro Soto B ED Physician Ras Flores HPI: 02/23 20:36 This 30 yrs old Female presents to ER via Ambulatory with complaints of kb Vaginal Bleeding. 20:36 The patient presents to the emergency department with vaginal bleeding. kb course: care: private OB physician, Leakage of Fluid: none appreciated, Ultrasound: the patient has not had an ultrasound, Risk/complications: no obvious risks or complications are appreciated. Previous pregnancies: in previous pregnancies patient has had. Associated signs and symptoms: Pertinent positives: vaginal bleeding, Pertinent negatives: abdominal pain, fever. The patient has not experienced similar symptoms in the past. The patient has been recently seen by a physician:. Pt reports she has been having some abnormal vaginal bleeding so she went to Dr Soto's office today. They did a test and it was positive so they told her to come here for blood work and an US due to her history of ectopic with hemorrhage. . 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 - Social history:: Smoking status: Patient denies any tobacco usage or history of. ROS: 20:35 Constitutional: Negative for fever, chills, and weight loss. kb 20:35 : Positive for vaginal bleeding. 20:35 All other systems are negative. Exam: 20:39 Constitutional: This is a well developed, well nourished patient who is awake, alert, kb and in no acute distress. Head/Face: Normocephalic, atraumatic. ENT: Moist Mucous membranes Cardiovascular: Regular rate and rhythm with a normal S1 and S2. No gallops, murmurs, or rubs. No pulse deficits. Respiratory: Respirations even and unlabored. No increased work of breathing, no retractions or nasal flaring. Abdomen/GI: Soft, non-tender. No distention Skin: Warm, dry with normal turgor. Normal color. MS/ Extremity: Pulses equal, no cyanosis. Neurovascular intact. Full, normal range of motion. Neuro: Awake and alert, GCS 15, oriented to person, place, time, and situation. Moves all extremities. Normal gait. Psych: Awake, alert, with orientation to person, place and time. Behavior, mood, and affect are within normal limits. Vital Signs: 14:34 BP 143 / 81; Pulse 83; Resp 17 S; Temp 97.6(TE); Pulse Ox 99% on R/A; Weight 87.54 kg jd3 (R); Height 5 ft. 2 in. (157.48 cm) (R); Pain 3/10; 18:20 BP 103 / 78 LA Sitting (auto/); Pulse 77; sv 18:23 BP 120 / 68 RA Standing (auto/); Pulse 67; sv 18:57 BP 126 / 67 LA Sitting (auto/); Pulse 67; sv 14:34 Body Mass Index 35.30 (87.54 kg, 157.48 cm) jd3 18:20 Informed Estefany DAVID sv 18:23 Informed Estefany DAVID sv MDM: 16:11 Patient medically screened. kb 16:33 ED course: Consulted with Dr. Soto, states given her previous hx of hemorrhagic rn ectopic, and given cornual ectopic on u/s and impending spont of second sac, Dr. Soto recommends 75mg methotrexate and patient agrees. Actually went to bathroom and passed the lower sac seen in ultrasound i believe. . 17:45 Data reviewed: vital signs, nurses notes. Data interpreted: Pulse oximetry: on room air kb is 99 %. Interpretation: normal. Counseling: I had a detailed discussion with the patient and/or guardian regarding: the historical points, exam findings, and any diagnostic results supporting the discharge/admit diagnosis, lab results, radiology results, the need for outpatient follow up, an OB/Gyne specialist, to return to the emergency department if symptoms worsen or persist or if there are any questions or concerns that arise at home. 17:46 ED course: Pt Rh positive on previous labs. kb 02/23 16:08 Order name: Quantitative Hcg kb 02/23 16:08 Order name: Abo/rh Typing; Complete Time: 18:14 kb 02/23 16:08 Order name: Basic Metabolic Panel kb 02/23 16:08 Order name: CBC with Diff; Complete Time: 17:23 kb 02/23 16:09 Order name: HCG, Quantitative; Complete Time: 17:10 EDMS 02/23 16:09 Order name: Basic Metabolic Panel; Complete Time: 17:10 EDMS 02/23 14:46 Order name: US Transvaginal Ob; Complete Time: 16:04 rn 02/23 16:08 Order name: IV Saline Lock; Complete Time: 16:40 kb 02/23 16:08 Order name: Labs collected and sent; Complete Time: 16:41 kb 02/23 16:08 Order name: NPO; Complete Time: 16:41 kb Administered Medications: 17:53 Drug: Methotrexate 75 mg Route: IM; Site: right gluteus; sv 18:39 Follow up: Response: No adverse reaction sv Disposition: 02/24 07:04 Co-signature as Attending Physician, Ras Flores MD. rn Disposition: 02/23/21 17:45 Discharged to Home. Impression: Ectopic , unspecified. - Condition is Stable. - Discharge Instructions: Ectopic , [id number]. - Medication Reconciliation Form, Thank You Letter, Antibiotic Education, Prescription Opioid Use form. - Follow up: Emergency Department; When: As needed; Reason: Worsening of condition. Follow up: Lazaro Soto MD; When: 2 - 3 days; Reason: Recheck today's complaints, Continuance of care, Re-evaluation by your physician. - Notes: Follow up with Dr Soto Signatures: Dispatcher [employer] EDIL Estefany Wilde, ARCHIVES SPECIALIST-C ARCHIVES SPECIALIST-Emelyn Doshi RN RN Ras Nuñez MD MD rn Davies, Jonathon, RN RN jd3 Corrections: (The following items were deleted from the chart) 02/23 18:58 17:45 02/23/2021 17:45 Discharged to Home. Impression: Ectopic , unspecified. sv Condition is Stable. Forms are Medication Reconciliation Form, Thank You Letter, Antibiotic Education, Prescription Opioid Use. Follow up: Emergency Department; When: As needed; Reason: Worsening of condition. Follow up: Lazaro Soto; When: 2 - 3 days; Reason: Recheck today's complaints, Continuance of care, Re-evaluation by your physician. kb
[2021-02-23] MEDS ORDERED: METHOTREXATE 25 MG/ML VIAL IM ONE (18:00)
[2021-02-23 19:15] VITALS: TEMP 97.6; O2SAT 99
[2021-02-23 19:27] VITALS: BP 126/67
== END 2021-02-23 18:58 | disposition home or self-care (01) ==
LOC: ER 14:26
DX: O00.90 Unspecified ectopic pregnancy without intrauterine pregnancy (principal)
CPT/HCPCS: 36415; 76817; 80048; 84702; 85025; 86900; 86901; 96372; 99284; J9260

== ENCOUNTER 2021-03-06 10:48 | Day surgery (SDC) | payer OTHER, SELFPAY ==
--- NOTE | 2021-03-05 11:20 | PREOPHP ---
Date of Admission: 03/06/2021 History Of Present Illness: This is a 30-year-old female, 1 normal , 1 tubal ectopic pregna ncy with removal of the tube, and now with twin failed gestation. Two ultrasounds demonstrated nonvi able intrauterine contents, in fact last one showed sacs were collapsing. There is some possibility that one of the pregnancies is implanted in the cornual area on the patient's left side. She is requ esting D and C. She does not wish to wait for expectant management. She has been given 75 mg of met hotrexate and there has been initial flare of the hormone levels, but not dramatic. She knows that s urgery has risks including infection; blood loss; anesthetic complications; injury to bladder, bowel, ureter; postoperative complications; clots in legs, and pneumonia, but wishes to proceed at this [facility]. She has had a previous . Family History: Noncontributory. Past Medical History: No allergies, history of the , tubal ectopic , and no other significant problems. Physical Examination: HEENT: Clear. Pupils equal, round, and reactive to light and accommodation. Conjunctivae well perf used. No oral, lingual, or buccal lesions. Chest and Lungs: Clear. Heart: Without murmurs, thrills, heaves, or rubs. Breasts: Without masses on previous visits. Abdomen: Soft. Extremities: Clear. Genitalia: The uterus is in the 8-9 week size range. Assessment And Plan: Laminaria tent inserted partially. I do not think we get full insertion, but t he patient seemed to be too uncomfortable, so we will just dilate her more tomorrow when she is aslee p. She is Rh positive, therefore will not need RhoGAM. We will have ultrasound available and I have talked to Dr. Ku who hopefully can be on standby if I need any assistance. We will proceed with uterine evacuation tomorr ow for failed . KARLIE/UBALDO Voice ID: [id number]
[2021-03-05 12:03] LABS: Absolute Lymphocytes (CBC) 2.3 K/uL (0.7-4.9); Basophils % 0.5 % (0-1.3); Hematocrit 40.4 % (36.0-45.0); Lymphocytes % 13.1 % (15.3-44.8); MPV 9.5 fL (7.6-11.3); RBC Red Blood Cell Count 4.61 M/uL (3.86-4.86)
[2021-03-05 12:07] LABS: Protime INR 1.1
[2021-03-05 12:19] LABS: Urine Appearance CLEAR (Clear); Urine Bacteria <20 /HPF (<20); Urine Bilirubin NEGATIVE (Negative); Urine Blood NEGATIVE (Negative); Urine Color YELLOW (Yellow); Urine Glucose NEGATIVE (Negative); Urine Microscopic Reflex ORDER UMIC; Urine Protein NEGATIVE (Negative); Urine RBC <5 /HPF (NONE SEEN)
[2021-03-05 12:20] LABS: Urine Mucus LIGHT /HPF (NONE SEEN)
[2021-03-06] MEDS ORDERED: OXYTOCIN/LR 20 UNIT/1,000 ML BAG IV SCH (11:00)
[2021-03-06] MEDS ORDERED: CEFAZOLIN/SWI 2gm 2 GM/20 ML SYR ONE (11:18)
[2021-03-06] MEDS ORDERED: CELECOXIB 100 MG CAPSULE PO ONE (11:30)
[2021-03-06] MEDS ORDERED: ACETAMINOPHEN 500 MG TAB PO ONE (11:30)
[2021-03-06] MEDS ORDERED: CELECOXIB 100 MG CAPSULE ONE (11:46)
[2021-03-06] MEDS ORDERED: ACETAMINOPHEN 500 MG TAB ONE (11:46)
[2021-03-06] MEDS ORDERED: ONDANSETRON 4 MG/2 ML VIAL ONE ×2 (12:15→13:42)
[2021-03-06] MEDS ORDERED: propofoL 200 MG/20 ML VIAL IV ONE ×2 (12:15→12:26)
[2021-03-06] MEDS ORDERED: LIDOCAINE 2% MPF 5 ML VIAL ONE ×2 (12:15→12:26)
[2021-03-06] MEDS ORDERED: dexAMETHasone 10 MG/ML VIAL ONE ×2 (12:15→12:26)
[2021-03-06] MEDS ORDERED: FENTANYL CITR 100 MCG/2 ML ONE ×2 (12:15→12:26)
[2021-03-06] MEDS ORDERED: MIDAZOLAM HCL 2 MG/2 ML INJ ONE ×2 (12:15→12:26)
[2021-03-06] MEDS ORDERED: KETOROLAC 30 MG/ML INJ ONE (12:15)
[2021-03-06] MEDS ORDERED: OXYTOCIN 10 UNIT/ML ML IV ONE (12:22)
[2021-03-06] MEDS ORDERED: SILVER NITRATE 1 APPL TOP ONE ×2 (12:22→13:29)
[2021-03-06] MEDS ORDERED: METHYLERGONOVINE 0.2MG/ML AMP IM ONE (12:23)
[2021-03-06] MEDS ORDERED: EPHEDRINE SULF 50 MG/ML VIAL ONE (13:15)
[2021-03-06 13:19] VITALS: O2SAT 100
--- NOTE | 2021-03-06 13:31 | RAD REPORT ---
EXAM DESCRIPTION: US - Ultrasound Intraop - 03/06/2021 1:25 pm CLINICAL HISTORY: OR Pelvic pain COMPARISON: No comparisons FINDINGS: Limited pelvic ultrasound was supplied to the referring physician for D and C procedure. D etails of the procedure not available.
[2021-03-06] MEDS ORDERED: HYDROMORPHONE HCL 1 MG/ML INJ ONE (13:42)
[2021-03-06 15:41] VITALS: BP 100/55; TEMP 97.7
--- NOTE | 2021-03-06 23:34 | OP ---
Surgeon: Lazaro Soto MD A 30-year-old female. Preoperative Diagnoses: Missed , twin, failed gestation, 1 growing into the right cornual area. Full preoperative counseling concerning the procedure and possible complications including infection, blood loss, anesthetic complications, injury to bladder, bowel, ureter, postoperative complications, clots in legs, pneumonia. The patient knows fully well this does not constitute all the possible problems that could occur during or following surgery. Anesthesia: General anesthetic, endotracheal intubation. 2 g of Ancef was given before the procedure. IV drip Pitocin. The patient is Rh positive, will not need RhoGAM. Procedure In Detail: After adequate general anesthesia, ultrasound was performed showing the gestational sacs, 1 on the left and 1 in the right going to the cornual area. Dilation was performed carefully. Laminaria tent had been placed the evening prior, but the patient was uncomfortable and it did not get fully inserted, so it did not really do much in the way of dilation. It was discarded. A 10 mm curved curette was first attempted, but then a 10 mm straight curette was used. Very black necrotic material was obtained. Sharp curettement followed the suction and another sharp curettement and then another suction. Uterus was mildly hypotonic. IV drip Pitocin, IM Methergine 0.2 mg and intracervical 10 units of Pitocin given. Estimated blood loss 350 cc. Uterus contracted down well. At this point, ultrasound was again performed. No further products of conception were seen anywhere, especially the right cornual area. Estimated blood loss as stated _350 cc. Tenaculum liv on the right was cauterized with silver nitrate. Further observation showed no further bleeding. Final Diagnoses: Missed , twin gestation, 1 projecting into the right cornual area, general anesthesia, dilation, curettage. Ultrasound examination showed complete evacuation of necrotic intrauterine contents. Dismissal Note: The patient underwent suction and curettage for removal of failed twin gestation 1 extending to the right cornual area. She was given 2 g of Ancef prophylactically and will be continued on antibiotics in the postop period. 100 mg of doxycycline twice a day for 3 days as well as Cytotec 100 mcg every 4 hours for 4 doses. She is Rh positive, does not need RhoGAM. During the procedure, she experienced about 350 to 375 cc blood loss. She was given IV Pitocin drip, intracervical Pitocin 10 units and 0.2 mg of Methergine IM, but is stable at this point. Bleeding is minimal. Ultrasound was performed before and after the procedure and no further tissue was seen in the uterus. Final Diagnoses: Failed intrauterine twin gestation, 1 extending to the right cornual area, suction and curettage for uterine evacuation, dilation performed and ultrasound exam before and after the procedure. KARLIE/UBALDO Voice ID: [id number] Report ID: [id number] MTDD
== END 2021-03-06 14:42 | disposition home or self-care (01) ==
LOC: OR 10:48
PROVIDERS: ATTEND Specialist
PROC: 10D17ZZ Extraction of Products of Conception, Retained, Via Natural or Artificial Opening (ICD-10-PCS; principal; 2021-03-06 12:30)
DX: O02.1 Missed abortion (principal); O62.2 Other uterine inertia
CPT/HCPCS: 87088; 85025; 87086; 36415; 86900; 86850; 85610; 86901; 88305; 85730; 87077; 87186; 76998; 59820; J2704; J2210; J2250; J3010; J2590; J1100; J1170; J0690; J2405; 81003; 81015